=== PATIENT | female | born 1995 | race African-American/Black ===

== ENCOUNTER 2020-09-06 14:31 | Outpatient (CLI) | payer OTHER ==
[~2020-09-06 14:31] MED LIST: AMOX1TAB12 PO; CLEOCIN HCL300 MG PO
[2020-09-07] MEDS ORDERED: DICLOFENAC POTA50 MG PO (17:00)
== END 2020-09-06 14:32 | disposition home or self-care (01) ==
LOC: PPH VACUNA 14:31
DX: Z23 Encounter for immunization (principal)

== ENCOUNTER 2020-09-07 10:58 | Emergency (ER) | payer OTHER ==
[~2020-09-07] VITALS: Ht 154.9 cm; Wt 77.1 kg
[2020-09-07] MEDS ORDERED: DICLOFENAC POTA50 MG PO (17:00)
== END 2020-09-07 17:38 | disposition home or self-care (01) ==
LOC: ER 10:58
DX: N83.292 Other ovarian cyst, left side (principal); R10.2 Pelvic and perineal pain

== ENCOUNTER 2020-09-27 08:20 | Outpatient (CLI) | payer OTHER ==
[~2020-09-27 08:20] MED LIST changes: +DICLOFENAC POTA50 MG PO
== END 2020-09-27 08:25 | disposition home or self-care (01) ==
LOC: PPH VACUNA 08:20
DX: Z23 Encounter for immunization (principal)

== ENCOUNTER 2020-10-16 23:49 | Emergency (ER) | payer OTHER ==
[~2020-10-16] VITALS: Ht 154.9 cm; Wt 76.2 kg
[2020-10-17] MEDS ORDERED: MUPIROCIN22 GM TOP (04:57)
[2020-10-17] MEDS ORDERED: KETO10TA2 PO (04:57)
[2020-10-17] MEDS ORDERED: CEPHALEXIN500 M1 PO (04:57)
== END 2020-10-17 05:08 | disposition home or self-care (01) ==
LOC: ER 23:49
DX: S81.821A Laceration with foreign body, right lower leg, initial encounter (principal); S00.83XA Contusion of other part of head, initial encounter; S40.011A Contusion of right shoulder, initial encounter; V80.010A Animal-rider injured by fall from or being thrown from horse in noncollision accident, initial encounter; Y93.89 Activity, other specified; Y92.89 Other specified places as the place of occurrence of the external cause; Y99.8 Other external cause status

== ENCOUNTER 2020-10-25 08:45 | Emergency (ER) | payer OTHER ==
[~2020-10-25] VITALS: Ht 154.9 cm; Wt 78.9 kg
[~2020-10-25 08:45] MED LIST changes: +CEPHALEXIN500 M1 PO; +KETO10TA2 PO; +MUPIROCIN22 GM TOP
[2020-10-25] MEDS ORDERED: INTESTINEX680 M1 PO (11:05)
[2020-10-25] MEDS ORDERED: BACTRIM DS TAB1 EACH PO (11:05)
== END 2020-10-25 12:50 | disposition home or self-care (01) ==
LOC: ER 08:45
DX: L03.115 Cellulitis of right lower limb (principal); Z48.02 Encounter for removal of sutures

== ENCOUNTER 2021-02-09 10:35 | Outpatient (CLI) | payer OTHER ==
[~2021-02-09 10:35] MED LIST changes: +BACTRIM DS TAB1 EACH PO; +INTESTINEX680 M1 PO
== END 2021-02-09 10:37 | disposition home or self-care (01) ==
LOC: PPH VACUNA 10:35
PROVIDERS: ATTEND Emergency Medicine Pediatric Emergency Medicine
DX: Z23 Encounter for immunization (principal)